=== PATIENT | female | born 1950 | race Caucasian/White ===

== ENCOUNTER 2018-10-14 14:27 | Emergency (ER) | payer SELFPAY ==
[~2018-10-14] VITALS: Ht 165.1 cm; Wt 101.7 kg
[2018-10-14 14:45] VITALS: BP 139/73; PULSE 76; RESP 18; Ht 165.1 cm; Wt 101.7 kg
== END 2018-10-14 21:08 | disposition left against medical advice (07) ==
LOC: E/R 14:27
DX: Z53.21 Procedure and treatment not carried out due to patient leaving prior to being seen by health care provider (principal)

== ENCOUNTER 2018-10-17 15:22 | Emergency (ER) | payer MEDICARE, BC ==
[~2018-10-17] VITALS: Ht 172.7 cm; Wt 103.4 kg
[2018-10-17 15:27] VITALS: BP 136/72; PULSE 86; RESP 18; Ht 172.7 cm; Wt 103.4 kg
--- NOTE | 2018-10-17 16:33 | ERD ---
ER Documentation Chief Complaint Chief Complaint pt is bib self with c/o left/right lower arm pain, left worsex 7 days, HPI This is a 68-year-old female patient who comes into the emergency room with complaint of pain and swelling in left arm since June, states "feels like blood not circulating my arm" states creased in severity since Tuesday, denies injury. States had similar problem in her right arm a few years ago had an MRI and was diagnosed with carpal tunnel syndrome. ROS All systems reviewed and are negative except as per history of present illness. Medications Home Meds Active Scripts Naproxen* (Naprosyn*) 500 Mg Tablet, 500 MG PO BID PRN for PAIN AND/OR INFLAMMATION, #30 TAB Prov:FILOMENA HOPE PUNCHER 10/17/18 Allergies Allergies: Coded Allergies: No Known Allergy (Unverified , 10/14/18) PMhx/Soc Hx Miscellaneous Medical Probl: Yes (carpel tunnel) Hx Alcohol Use: No Hx Substance Use: No Hx Tobacco Use: No Smoking Status: Never smoker FmHx hypothyroid Physical Exam Vitals Vital Signs Date Temp Pulse Resp B/P (MAP) Pulse Ox O2 O2 Flow FiO2 Time Delivery Rate 10/17/18 99.7 86 18 136/72 97 15:27 (93) Physical Exam Const: No acute distress Head: Atraumatic Eyes: Normal Conjunctiva, PERRL ENT: Normal External Ears, Nose and Mouth. Pharynx pink without lesions or e xudate Neck: Full range of motion. No meningismus. No Cervical spinal tenderness. FROM. Resp: Clear to auscultation bilaterally Cardio: Regular rate and rhythm, no murmurs Abd: Soft, non tender, non distended. Normal bowel sounds Skin: No petechiae or rashes Back: No midline or flank tenderness Ext: No cyanosis, or edema. Left arm not appreciatively enlarged compared to right, pt is obese with enlarged extremities, no pitting edema. 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 States her doctor does not have enough time to spend with her to be explaining her problems. ED COURSE: The patient was stable throughout ED course. DIAGNOSTIC IMAGING: No sonographic evidence for venous thrombosis No acute fracture identified in the left forearm. No acute fracture identified in the left hand. Read by radiologist. PROCEDURES: None. MEDICATIONS GIVEN: Patient refusing pain medication 18:18 patient provided with discharge instructions, left wrist splint, and referral to orthopedics. Patient refusing discharge at this time insisting on x-ray of left upper extremity. Discussed with patient that x-ray is not yossi cated at this time, patient insistent and demanding x-ray or MRI. MDM: Patient has been evaluated for thoracic outlet syndrome, DVT, infection, carpal tunnel syndrome, tendon or ligament injury. Considering patient has full range of motion and use of extremity, without fevers, without redness, without ecchymosis, low suspicion for venous or arterial disease, or life or limb threa tening condition. Clinical evaluation suggestive of carpal tunnel syndrome. Patient needs to follow-up with her primary care doctor for further evaluation and possible orthopedic treatment for carpal tunnel syndrome. DISPOSITION: The patient has been discharge home to follow-up with community physician. Departure Diagnosis: Primary Impression: Pain of left arm Condition: Stable Referrals: [facility] Additional Instructions: Thank you very much for allowing us to participate in your care. Your health and safety is our top priority at [facility]. Call your primary care doctor TOMORROW for an appointment during the next 2-4 days and bring all the information and medications prescribed. Have prescriptions filled and follow precisely the directions on the label. If the symptoms get worse and your provider is unavailable, return to the Emergency Department immediately. FILOMENA HOPE NP Oct 17, 2018 16:32
[2018-10-17] MEDS ORDERED: NAPR-985 PO (17:51)
== END 2018-10-17 21:39 | disposition home or self-care (01) ==
LOC: FTE 15:22
DX: M79.602 Pain in left arm (principal)
CPT/HCPCS: 73090; 93971